=== PATIENT | female | born 1950 | race Caucasian/White ===

== ENCOUNTER 2018-12-26 11:26 | Day surgery (SDC) | payer MEDICARE, OTHER ==
[~2018-12-26] VITALS: Ht 157.5 cm; Wt 77.5 kg
[~2018-12-26 11:26] MED LIST: CYCLOPENTOLATE 1% 2 ML OPH OPER SCH; MOXIFLOXACIN 0.5% 3 ML OPH OPER SCH; NEPAFENAC 0.1% 3 ML OPH OPER SCH; PHENYLephrine 2.5% 15 ML OPH OPER SCH; TROPICAMIDE 1% 15 ML OPH OPER SCH
[2018-12-26 11:35] VITALS: BP 203/90; PULSE 65; RESP 16
[2018-12-26] MEDS ORDERED: INSU100I33 SC (12:07)
[2018-12-26] MEDS ORDERED: NIFE30TA23 PO (12:08)
[2018-12-26] MEDS ORDERED: SIMV40TA2 PO (12:08)
[2018-12-26] MEDS ORDERED: SITA1TAB5 PO (12:08)
[2018-12-26] MEDS ORDERED: VALS320T2 PO (12:09)
[2018-12-26] MEDS ORDERED: OMEP20CA16 PO (12:09)
[2018-12-26] MEDS ORDERED: OXYB5TAB22 PO (12:10)
[2018-12-26 12:45] VITALS: Ht 157.5 cm; Wt 77.5 kg
--- NOTE | 2018-12-26 12:52 | PREAC ---
Date/Time of Note Date/Time of Note DATE: 12/26/18 TIME: 12:50 Anesthesia Eval and Record Evaluation Time Pre-Procedure Interview DATE: 12/26/18 TIME: 12:50 Age 68 Sex female NPO: 8 hrs Preoperative diagnosis age related nuclear cataract Planned procedure right eye cataract extraction Past Medical History Past Medical History: Includes Cardio: HTN Endo: Diabetes GI: GERD Surgery & Anesthesia Issues No known issue Meds Anticoagulation: No Beta Vickie within 24 hr: No Reason Beta Vickie not given: Pt. not on B-Vickie Reported Medications Oxybutynin Chloride* (Ditropan* XL) 5 Mg Tabsr, 5 MG PO DAILY, TAB.SA 12/26/18 Valsartan* (Diovan*) 320 Mg Tablet, 320 MG PO DAILY, TAB 12/26/18 Omeprazole* (Omeprazole*) 20 Mg Capsule.dr, 20 MG PO DAILY, #30 CAP 12/26/18 Nifedipine* (Nifedipine ER*) 30 Mg Tablet.sa, 30 MG PO DAILY, TAB.SA 12/26/18 Sitagliptin Phos/Metformin HCl (Janumet 50-1,000 mg Tablet) 1 Each Tablet, 1 EACH PO BID, TAB 12/26/18 Simvastatin* (Zocor*) 40 Mg Tablet, 40 MG PO QHS, #30 TAB 12/26/18 Insulin Glargine,Hum.rec.anlog (Basaglar Kwikpen U-100) 100 Unit/1 Ml Insuln.pen, 15 UNIT SC BID, EA 12/26/18 Current Medications Cyclopentolate HCl (Ak-Pentolate 1% Oph) 1 drop Q 5 MIN X 3 OPER ; Start 12/26/18 at 06:00; Stop 12/26/18 at 18:00 Phenylephrine HCl (Ak-Dilate 2.5%) 1 drop Q 5 MIN X 3 OPER ; Start 12/26/18 at 06:00; Stop 12/26/18 at 18:00 Tropicamide (Mydriacyl 1%) 1 drop Q15 MIN X3 OPER ; Start 12/26/18 at 06:00; Stop 12/26/18 at 18:00 Moxifloxacin HCl (Vigamox) 1 drop Q 5 MIN X 3 OPER ; Start 12/26/18 at 06:00; Stop 12/26/18 at 18:00 Nepafenac (Nevanac Oph) 1 drop Q15 MIN X3 OPER ; Start 12/26/18 at 06:00; Stop 12/26/18 at 18:00 Hydralazine HCl (Apresoline) 10 mg ONCE ONCE IV ; Start 12/26/18 at 13:00; St op 12/26/18 at 13:01; Status UNV Meds reviewed: Yes Allergies Coded Allergies: No Known Allergy (Unverified , 12/26/18) Allergies Reviewed: Yes Labs/Studies Labs Reviewed: Reviewed by anesthesiologist test: N/A Studies: ECG, CXR Pre-procedure Exam Airway: Adequate mouth opening Mallampati: Mallampati II Teeth: Normal Lung: Normal Heart: Normal ASA Physical Status ASA physical status: 2 Emergency: None Planned Anesthetic General/MAC: MAC Pre-operative Attestations Prior to commencing anesthesia and surgery, the patient was re-evaluated, there was verification of: *The patient's identity *The results of appropriate recent lab work and preoperative vital signs *The above evaluation not changing prior to induction *Anesthetic plan, risk benefits, alternative and complications discussed with patient/family; questions answered; patient/family understands, accepts and w ishes to proceed. IZA JONES December 26, 2018 12:52
[2018-12-26 13:00] VITALS: BP 182/86; PULSE 65; RESP 16
[2018-12-26] MEDS ORDERED: hydrALAzine 20 MG INJ IV ONE ×2 (13:00→14:00)
[2018-12-26 13:05] VITALS: BP 190/90; PULSE 72; RESP 16
[2018-12-26] MEDS ORDERED: MIDAZOLAM 1 MG/ML 2 ML INJ ONE (13:18)
[2018-12-26] MEDS ORDERED: TROPICAMIDE 1% 15 ML OPH OPER SCH (13:30)
[2018-12-26] MEDS ORDERED: NEPAFENAC 0.1% 3 ML OPH OPER SCH (13:30)
--- NOTE | 2018-12-26 13:30 | HPN ---
Date/Time of Note Date/Time of Note DATE: 12/26/18 TIME: 13:29 Interval H&P Admission Note Pt. seen H&P reviewed: Systems changes noted below BP more elevated today. Being treated by anesthesiology and will re-check. BRANDO MENDEZ December 26, 2018 13:30
--- NOTE | 2018-12-26 14:46 | HPN ---
Date/Time of Note Date/Time of Note DATE: 12/26/18 TIME: 14:43 Interval H&P Admission Note Pt. seen H&P reviewed: Systems changes noted below Patient's BP still elevated after medication. Surgery cancelled and patient taken down to ER for evaluation and treatment. Called ER and spoke with Dr. Holder regarding patient's arrival. Discussed with patient that she will also need to f/u with her PCP for her hypertension. BRANDO MENDEZ December 26, 2018 14:46
== END 2018-12-26 14:40 ==
LOC: SDS 11:26
PROVIDERS: ATTEND Ophthalmology
DX: H26.8 Other specified cataract (principal); Z53.8 Procedure and treatment not carried out for other reasons; I10 Essential (primary) hypertension; E11.9 Type 2 diabetes mellitus without complications; Z79.4 Long term (current) use of insulin
CPT/HCPCS: 82962; J0360; J2250

== ENCOUNTER 2018-12-26 14:50 | Emergency (ER) | payer MEDICARE, OTHER ==
[~2018-12-26] VITALS: Ht 157.5 cm; Wt 74.0 kg
[~2018-12-26 14:50] MED LIST changes: -CYCLOPENTOLATE 1% 2 ML OPH OPER SCH; +INSU100I33 SC; -MOXIFLOXACIN 0.5% 3 ML OPH OPER SCH; -NEPAFENAC 0.1% 3 ML OPH OPER SCH; +NIFE30TA23 PO; +OMEP20CA16 PO; +OXYB5TAB22 PO; -PHENYLephrine 2.5% 15 ML OPH OPER SCH; +SIMV40TA2 PO; +SITA1TAB5 PO; -TROPICAMIDE 1% 15 ML OPH OPER SCH; +VALS320T2 PO
[2018-12-26 15:11] VITALS: Ht 157.5 cm; Wt 74.0 kg
[2018-12-26] MEDS ORDERED: NIFEdipine 10 MG CAP PO ONE ×2 (18:30)
--- NOTE | 2018-12-26 19:07 | ERD ---
ER Documentation Chief Complaint Chief Complaint sent from same day surgery for htn bp now 121/59 HPI This this is a 68-year-old female patient who presents the emergency room after being sent here from same-day surgery for high blood pressure. Patient was scheduled to have cataract surgery to the right eye. Unknown how high her blood pressure was in surgery. Patient states she has history of diabetes and high blood pressure, she did not take her nifedipine this morning as she has to take a lot of water with the nifedipine and her doctor told her to only have sips of water. She denies chest pain, no headache, no epistaxis, shortness of breath, patient states she otherwise feels fine. Patient states she was a little bit nervous having the procedure. ROS All systems reviewed and are negative except as per history of present illness. Medications Home Meds Reported Medications Oxybutynin Chloride* (Ditropan* XL) 5 Mg Tabsr, 5 MG PO DAILY, TAB.SA 12/26/18 Valsartan* (Diovan*) 320 Mg Tablet, 320 MG PO DAILY, TAB 12/26/18 Omeprazole* (Omeprazole*) 20 Mg Capsule.dr, 20 MG PO DAILY, #30 CAP 12/26/18 Nifedipine* (Nifedipine ER*) 30 Mg Tablet.sa, 30 MG PO DAILY, TAB.SA 12/26/18 Sitagliptin Phos/Metformin HCl (Janumet 50-1,000 mg Tablet) 1 Each Tablet, 1 EACH PO BID, TAB 12/26/18 Simvastatin* (Zocor*) 40 Mg Tablet, 40 MG PO QHS, #30 TAB 12/26/18 Insulin Glargine,Hum.rec.anlog (Basaglar Kwikpen U-100) 100 Unit/1 Ml Insuln.pen, 15 UNIT SC BID, EA 12/26/18 Allergies Allergies: Coded Allergies: No Known Allergy (Unverified , 12/26/18) PMhx/Soc History of Surgery: No Anesthesia Reaction: No Hx Neurological Disorder: No Hx Respiratory Disorders: No Hx Cardiac Disorders: Yes (HTN, HIGH CHOLESTEROL) Hx Psychiatric Problems: No Hx Miscellaneous Medical Probl: No Hx Alcohol Use: No Hx Substance Use: No Hx Tobacco Use: No Smoking Status: Never smoker FmHx Family History: diabetes Physical Exam Vitals Physical Exam Const: No acute distress Head: Atraumatic Eyes: Normal Conjunctiva, PERRL ENT: Normal External Ears, Nose and Mouth. Neck: Full range of motion. No meningismus. No lymphadenopathy Resp: Clear to auscultation bilaterally, wheezing rales or rhonchi Cardio: Regular rate and rhythm, no murmurs Abd: Soft, non tender, non distended. Normal bowel sounds Skin: No petechiae or rashes Ext: No cyanosis, or edema Neur: Awake and alert, CNII-XII intact, clear speech, steady gait Psych: Normal Mood and Affect Results 24 hrs Current Medications Medications Dose Sig/Faina Start Time Status Last (Trade) Ordered Route PRN Stop Time Admin Dose Reason Admin Nifedipine 10 mg ONCE ONCE 12/26/18 DC 12/26/18 (Procardia) PO 18:30 18:48 12/26/18 18:31 Nifedipine 20 mg ONCE ONCE 12/26/18 DC 12/26/18 (Procardia) PO 18:30 18:48 12/26/18 18:31 Procedures/MDM 19:13pt bp remains elevated, pt c/o mild headache, awaiting onset of action of Nifedipine, provider transfer of care to Dr. Hernandez. Departure Diagnosis: Primary Impression: Hypertension Condition: Stable Patient Instructions: Eating Heart-Healthy Food: Using the DASH Plan, High Blood Pressure (Hypertension) Referrals: DOCTOR,NOT ON STAFF (PCP) [facility] YOU HAVE RECEIVED A MEDICAL SCREENING EXAM AND THE RESULTS INDICATE THAT YOU DO NOT HAVE A CONDITION THAT REQUIRES URGENT TREATMENT IN THE EMERGENCY DEPARTMENT. FURTHER EVALUATION AND TREATMENT OF YOUR CONDITION CAN WAIT UNTIL YOU ARE SEEN IN YOUR DOCTORS OFFICE WITHIN THE NEXT 1-2 DAYS. IT IS YOUR RESPONSIBILITY TO MAKE AN APPOINTMENT FOR FOLOW-UP CARE. IF YOU HAVE A PRIMARY DOCTOR --you should call your primary doctor and schedule an appointment IF YOU DO NOT HAVE A PRIMARY DOCTOR YOU CAN CALL OUR PHYSICIAN REFERRAL HOTLINE AT IF YOU CAN NOT AFFORD TO SEE A PHYSICIAN YOU CAN CHOSE FROM THE FOLLOWING COUNT INCLUDES THE [facility] CL[facility]ICS [facility] [address]. [facility] [address] [facility] [address] [facility] [address] [facility]. [facility] [address] [facility]. [facility] [address] Additional Instructions: Thank you very much for allowing us to participate in your care. Your health and safety is our top priority at [facility]. Call your primary care doctor TOMORROW for an appointment during the next 2-4 days and bring all the information and medications prescribed. 1. HYPERTENSION: -Ideally your blood pressure should be <140/80, please talk to your doctor about the ideal range for you based on your medical conditions. You may need a change in dosage or addition of another medication to control your blood pressure. -Take your blood pressure at home daily, record readings, share with your doctor -Tomorrow resume your normal routine for your blood pressure medications -Reduce the salt in your diet 2. CATARACT SURGERY: -Contact your surgeon for rescheduling of surgery. -ASK YOUR DOCTOR IF YOU CAN DRINK ENOUGH WATER TO TAKE YOUR BLOOD PRESSURE MEDICATIONS PRIOR TO SURGERY. -ASK YOUR DOCTOR IF HE WOULD RECOMMEND A MILD SEDATIVE PRIOR TO SURGERY TO HELP YOU RELAX AND MAINTAIN A NORMAL BLOOD PRESSURE. If the symptoms get worse and your provider is unavailable, return to the Emergency Department immediately. Comments Patient evaluated with SOUND [employer]. Agree with plan. Patient stable after treatment, BP improved. Close follow up with PCP recommended for recheck of BP and possible medication adjustment. TEJ Whittaker NP December 26, 2018 19:07 DANISH HERNANDEZ DO January 03, 2019 10:12
[2018-12-26 19:48] VITALS: BP 152/70; PULSE 88; RESP 16
== END 2018-12-26 19:49 | disposition home or self-care (01) ==
LOC: FTE 14:50
DX: I10 Essential (primary) hypertension (principal); E11.9 Type 2 diabetes mellitus without complications; Z79.4 Long term (current) use of insulin
CPT/HCPCS: 99283

== ENCOUNTER 2019-02-13 11:06 | Day surgery (SDC) | payer MEDICARE, OTHER ==
[~2019-02-13] VITALS: Ht 157.5 cm; Wt 77.7 kg
[2019-02-13] VITALS (10 sets, daily range): BP systolic 101–173; BP diastolic 49–81; PULSE 62–68; RESP 9–18; Ht 157.5 cm; Wt 77.7 kg
[~2019-02-13 11:06] MED LIST changes: +CYCLOPENTOLATE 1% 2 ML OPH OPER SCH; +MOXIFLOXACIN 0.5% 3 ML OPH OPER SCH; +NEPAFENAC 0.1% 3 ML OPH OPER SCH; +PHENYLephrine 2.5% 15 ML OPH OPER SCH; +TROPICAMIDE 1% 15 ML OPH OPER SCH
[2019-02-13] MEDS ORDERED: METO-429 PO (11:31)
[2019-02-13] MEDS ORDERED: HYDR25TA6 PO (11:32)
[2019-02-13] MEDS ORDERED: TIMOLOL 0.5% 5 ML OPH ONE (12:33)
[2019-02-13] MEDS ORDERED: NA HYALURONATE/CHONDROITIN 0.5 ML SYG ONE (12:33)
[2019-02-13] MEDS ORDERED: TETRACAINE 0.5% 4 ML OPH ONE (12:33)
[2019-02-13] MEDS ORDERED: TOBRAMYCIN/DEXAMETH 3.5 GM OPH OINT ONE (12:33)
[2019-02-13] MEDS ORDERED: EPINEPHrine 1 MG INJ ONE (12:33)
[2019-02-13] MEDS ORDERED: LIDOCAINE 1% (MPF) 30 ML INJ ONE (12:33)
--- NOTE | 2019-02-13 13:11 | PREAC ---
Date/Time of Note Date/Time of Note DATE: 02/13/19 TIME: 13:10 Anesthesia Eval and Record Evaluation Time Pre-Procedure Interview DATE: 02/13/19 TIME: 13:10 Age 68 Sex female NPO: 8 hrs Preoperative diagnosis R eye cataract Planned procedure R eye cataract extraction w/ IOL Past Medical History Past Medical History: Includes Cardio: HTN, Dyslipidemia Endo: Diabetes GI: Obesity Surgery & Anesthesia Issues No known issue Meds Anticoagulation: No Beta Vickie within 24 hr: Yes Reported Medications Hydrochlorothiazide* (Hydrochlorothiazide*) 25 Mg Tab, 25 MG PO DAILY, #30 TAB 02/13/19 Metoprolol Tartrate* (Lopressor*) 50 Mg Tab, 50 MG PO DAILY, #60 TAB 02/13/19 Valsartan* (Diovan*) 320 Mg Tablet, 320 MG PO DAILY, TAB 12/26/18 Sitagliptin Phos/Metformin HCl (Janumet 50-1,000 mg Tablet) 1 Each Tablet, 1 EACH PO BID, TAB 12/26/18 Insulin Glargine,Hum.rec.anlog (Basaglar Kwikpen U-100) 100 Unit/1 Ml Insuln.pen, 15 UNIT SC BID, EA 12/26/18 Discontinued Reported Medications Oxybutynin Chloride* (Ditropan* XL) 5 Mg Tabsr, 5 MG PO DAILY, TAB.SA 12/26/18 Omeprazole* (Omeprazole*) 20 Mg Capsule.dr, 20 MG PO DAILY, #30 CAP 12/26/18 Nifedipine* (Nifedipine ER*) 30 Mg Tablet.sa, 30 MG PO DAILY, TAB.SA 12/26/18 Simvastatin* (Zocor*) 40 Mg Tablet, 40 MG PO QHS, #30 TAB 12/26/18 Current Medications Cyclopentolate HCl (Ak-Pentolate 1% Oph) 1 drop Q 5 MIN X 3 OPER Last administered on 02/13/19at 12:01; Admin Dose 1 DROP; Start 02/13/19 at 07:00 Phenylephrine HCl (Ak-Dilate 2.5%) 1 drop Q 5 MIN X 3 OPER Last administered on 02/13/19at 12:01; Admin Dose 1 DROP; Start 02/13/19 at 07:00 Tropicamide (Mydriacyl 1%) 1 drop Q 5 MIN X3 OPER Last administered on 02/13/19at 12:03; Admin Dose 1 DROP; Start 02/10/19 at 11:30 Moxifloxacin HCl (Vigamox) 1 drop Q 5 MIN X 3 OPER Last administered on 02/13/19at 12:01; Admin Dose 1 DROP; Start 02/13/19 at 07:00 Nepafenac (Nevanac Oph) 1 drop Q 5 MIN X 3 OPER Last administered on 02/13/19at 12:01; Admin Dose 1 DROP; Start 02/10/19 at 11:30 Meds reviewed: Yes Allergies Coded Allergies: No Known Allergy (Unverified , 02/13/19) Allergies Reviewed: Yes Labs/Studies Labs Reviewed: Reviewed by anesthesiologist test: N/A Studies: ECG (sr, rbbb), CXR (no active dz) Pre-procedure Exam Last vitals Vital Signs Date Temp Pulse Resp B/P (MAP) Pulse Ox O2 O2 Flow FiO2 Time Delivery Rate 02/13/19 97.6 66 16 173/81 97 Room Air 12:30 (111) Airway: Adequate mouth opening, Adequate thyromental dist Mallampati: Mallampati II Teeth: Abnormal (edentulous) Lung: Normal Heart: Normal ASA Physical Status ASA physical status: 2 Emergency: None Planned Anesthetic General/MAC: MAC Pre-operative Attestations Prior to commencing anesthesia and surgery, the patient was re-evaluated, there was verification of: *The patient's identity *The results of appropriate recent lab work and preoperative vital signs *The above evaluation not changing prior to induction *Anesthetic plan, risk benefits, alternative and complications discussed with patient/family; questions answered; patient/family understands, accepts and wishes to proceed. Junior Php Developer used ANTHONY PACHECO Feb 13, 2019 13:11
--- NOTE | 2019-02-13 13:15 | HPN ---
Date/Time of Note Date/Time of Note DATE: 02/13/19 TIME: 13:02 Interval H&P Admission Note Pt. seen H&P reviewed: No system changes BRANDO MENDEZ Feb 13, 2019 13:15
[2019-02-13] MEDS ORDERED: FENTAnyl 50 MCG/ML VIAL ONE (13:21)
[2019-02-13] MEDS ORDERED: MIDAZOLAM 1 MG/ML 2 ML INJ ONE (13:21)
[2019-02-13] MEDS ORDERED: hydrALAzine 20 MG INJ ONE (13:25)
[2019-02-13] MEDS ORDERED: DIPHENHYDRAMINE 50 MG INJ IV PRN (13:30)
[2019-02-13] MEDS ORDERED: ALBUTEROL 0.083% (NEB) 2.5 MG/3 ML AMP HHN PRN (13:30)
[2019-02-13] MEDS ORDERED: hydrALAzine 20 MG INJ IV PRN (13:30)
[2019-02-13] MEDS ORDERED: ONDANSETRON 4 MG INJ IV PRN (13:30)
[2019-02-13] MEDS ORDERED: FENTAnyl 50 MCG/ML VIAL IV PRN (13:30)
[2019-02-13] MEDS ORDERED: LABETALOL HCL 20MG INJ IV PRN (13:30)
[2019-02-13] MEDS ORDERED: ACETAMINOPHEN 325 MG TAB PO PRN (13:30)
[2019-02-13] MEDS ORDERED: ACETAMINOPHEN 500 MG TAB PO PRN (13:30)
[2019-02-13] MEDS ORDERED: OXYCODONE/ACETAMINOPHEN (5/325) TAB PO PRN (13:30)
--- NOTE | 2019-02-13 14:15 | PAC ---
Date/Time of Note Date/Time of Note DATE: 02/13/19 TIME: 14:14 Post-Anesthesia Notes Post-Anesthesia Note Last documented vital signs Vital Signs Date Temp Pulse Resp B/P (MAP) Pulse Ox O2 O2 Flow FiO2 Time Delivery Rate 02/13/19 97.6 98 66 68 16 18 173/81 97 96 Room 12:30 141 (111) 126 Air RA 0 /63 Activity: WNL Respiratory function: WNL Cardiovascular function: WNL Mental status: Baseline Pain reasonably controlled: Yes Hydration appropriate: Yes Nausea/Vomiting absent: Yes ANTHONY PACHECO Feb 13, 2019 14:15
--- NOTE | 2019-02-13 14:26 | OPR ---
Date/Time of Note Date/Time of Note DATE: 02/13/19 TIME: 14:25 Operative Report Free Text/Dictation Date of Surgery: 02/13/2019 Surgeon: Brando Mendez MD PreOp Diagnosis: Age-related nuclear cataract, right eye PostOp Diagnosis: Same Implant: [id number] [id number] Procedures: 1. Phacoemulsification and extraction of lens, right eye 2. Intraocular lens implantation, right eye Anesthesia: Monitored anesthesia care with topical anesthesia Complications: None Estimated blood loss: <1mL Description of Procedure: The patient suffers from a visually significant cataract of the right eye. After discussing the option of cataract surgery, including the risks and benefits, the patient voiced understanding and elected to proceed today. The patient was identified in the pre-op holding area where the right eye was marked. The patient was then brought to the operating room where a time out was called, identifying the patient, the procedure, and the correct site. Tetracaine eye drops were applied. The right eye was then prepped and draped in usual sterile ophthalmic fashion. An eyelid speculum was placed into the operative eye. A paracentesis was made superiorly with a side port blade. 1% preservative free lidocaine was injected into the anterior chamber. Next, Viscoat was injected to deepen the anterior chamber. A 2.4 mm keratome was used to create a temporal corneal wound. A continuous curvilinear capsulorrhexis was started with a bent cystitome and completed with Utrata forceps. Hydrodissection was performed with a cannula and BSS and the lens was rotated. Phacoemulsification of the lens nucleus was accomplished in a [id number] technique. Remaining residual cortex was removed with irrigation and aspiration. The posterior lens capsule was noted to be intact. Provisc was used to inflate the capsular bag. The lens was injected into the capsular bag. Viscoelastic was removed with irrigation and aspiration. The anterior chamber was filled with BSS to physiologic pressure and the wounds were hydrated and watertight. The eyelid speculum was removed and tobradex ointment was placed into the eye. A bautista shield was placed over the operative eye. The patient tolerated the procedure well and was in stable condition on the way to the recovery room. BRANDO MENDEZ Feb 13, 2019 14:26
== END 2019-02-13 19:00 | disposition home or self-care (01) ==
LOC: SDS 11:06
PROVIDERS: ATTEND Ophthalmology
DX: H25.11 Age-related nuclear cataract, right eye (principal); I10 Essential (primary) hypertension; E11.9 Type 2 diabetes mellitus without complications
CPT/HCPCS: 66984; 82962; J0171; J0360; J2250; J3010; V2632